=== PATIENT | female | born 1930 | race Caucasian/White ===

== ENCOUNTER 2016-09-15 13:57 | Inpatient (IN) | payer OTHER ==
[~2016-09-15] VITALS: Ht 167.6 cm; Wt 60.4 kg
[2016-09-15 14:51] LABS: BASOPHIL % 0.9 % (0-2); PLATELET COUNT 182 x10^3mcL (130-400)
[2016-09-15 15:01] LABS: CARBON DIOXIDE 24.7 mmol/L (21-32); CHLORIDE SERUM 106 mmol/L (98-107); CREATININE SERUM 1.4 mg/dL (0.6-1.0); GLUCOSE SERUM 90 mg/dL (74-106); POTASSIUM SERUM 4.3 mmol/L (3.5-5.1); SODIUM SERUM 144 mmol/L (136-145)
[2016-09-15 15:05] LABS: ALBUMIN 3.2 g/dL (3.4-5.0); ALKALINE PHOSPHATASE 72 U/L (46-116); ALT/SGPT 15 U/L (14-59); AST/SGOT 20 U/L (15-37); BILIRUBIN TOTAL 0.7 mg/dL (0.20-1.00); CHOLESTEROL 177 mg/dL (<200); TOTAL PROTEIN, SERUM 7.3 g/dL (6.4-8.2)
[2016-09-15] MEDS ORDERED: ZESTRIL20 MG PO (15:08)
[2016-09-15] MEDS ORDERED: PRO60 PO (15:09)
[2016-09-15] MEDS ORDERED: HALOPERIDOL2 MG PO (15:09)
[2016-09-15] MEDS ORDERED: COG1 PO (15:10)
[2016-09-15 16:43] LABS: UA SPECIFIC GRAVITY 1.025 (1.005-1.035); microscopic required? YES; urine erythrocyte NEGATIVE (NEGATIVE)
[2016-09-15 17:24] LABS: CHOLESTEROL/HDL RATIO 3.7; PHOSPHOROUS 2.7 mg/dL (2.5-4.9)
[2016-09-15 17:31] LABS: FREE T4 1.26 ng/dL (0.76-1.46); FREE THYROXINE INDEX 2.4 ug/dL (1.4-4.5); T4(THYROXINE) 6.9 ug/dL (4.7-13.3)
[2016-09-15 17:33] LABS: T3 TOTAL 0.69 ng/mL
[2016-09-15 18:00] VITALS: BP 121/61
[2016-09-15 20:55] VITALS: BP 136/70
[2016-09-16 05:38] VITALS: BP 120/56
[2016-09-16 05:40] LABS: BASOPHIL % 0.6 % (0-2); PLATELET COUNT 162 x10^3mcL (130-400)
[2016-09-16 05:45] LABS: CALCIUM 9.1 mg/dL (8.5-10.1); CHLORIDE SERUM 108 mmol/L (98-107); CREATININE SERUM 1.2 mg/dL (0.6-1.0); GLUCOSE SERUM 79 mg/dL (74-106); RED CELL DISTRIBUTION WIDTH 15.2 % (11.5-14.5); SODIUM SERUM 142 mmol/L (136-145)
[2016-09-16 06:00] LABS: ALBUMIN 2.7 g/dL (3.4-5.0)
[2016-09-16 09:18] VITALS: BP 108/54
[2016-09-16 13:10] VITALS: BP 116/70
[2016-09-16 17:03] VITALS: BP 122/60
[2016-09-16 21:36] VITALS: BP 140/64
[2016-09-17 05:39] VITALS: BP 103/39
[2016-09-17 11:00] VITALS: BP 125/59
[2016-09-17 13:40] VITALS: BP 104/51
[2016-09-17 18:15] VITALS: BP 121/68
[2016-09-17 21:38] VITALS: BP 126/81
[2016-09-18 06:06] VITALS: BP 121/74
[2016-09-18 06:35] LABS: CALCIUM 8.2 mg/dL (8.5-10.1); CARBON DIOXIDE 23.6 mmol/L (21-32); CHLORIDE SERUM 112 mmol/L (98-107); CREATININE SERUM 0.9 mg/dL (0.6-1.0); GLUCOSE SERUM 77 mg/dL (74-106); POTASSIUM SERUM 3.8 mmol/L (3.5-5.1); SODIUM SERUM 145 mmol/L (136-145)
[2016-09-18 08:55] VITALS: BP 139/70
[2016-09-18 17:40] VITALS: BP 128/68
[2016-09-18 18:48] VITALS: Ht 167.6 cm; Wt 60.4 kg
[2016-09-18 21:52] VITALS: BP 134/70
[2016-09-19 04:06] VITALS: BP 128/68
[2016-09-19 07:14] LABS: BASOPHIL % 0.3 % (0-2); PLATELET COUNT 161 x10^3mcL (130-400)
[2016-09-19 07:20] LABS: RED CELL DISTRIBUTION WIDTH 15.1 % (11.5-14.5)
[2016-09-19 07:25] LABS: CALCIUM 8.2 mg/dL (8.5-10.1); CARBON DIOXIDE 20.9 mmol/L (21-32); CHLORIDE SERUM 113 mmol/L (98-107); CREATININE SERUM 0.9 mg/dL (0.6-1.0); GLUCOSE SERUM 99 mg/dL (74-106); POTASSIUM SERUM 3.4 mmol/L (3.5-5.1); SODIUM SERUM 145 mmol/L (136-145)
[2016-09-19 09:30] VITALS: BP 137/72
[2016-09-19 17:13] VITALS: BP 118/71
[2016-09-20 01:30] VITALS: BP 128/68
[2016-09-20 08:16] LABS: CALCIUM 8.3 mg/dL (8.5-10.1); CARBON DIOXIDE 19.2 mmol/L (21-32); CHLORIDE SERUM 114 mmol/L (98-107); CREATININE SERUM 0.7 mg/dL (0.6-1.0); POTASSIUM SERUM 4.4 mmol/L (3.5-5.1); SODIUM SERUM 142 mmol/L (136-145)
[2016-09-20 08:25] LABS: GLUCOSE SERUM 94 mg/dL (74-106)
[2016-09-20 09:13] VITALS: BP 124/70
[2016-09-20 09:50] LABS: PLATELET COUNT 173 x10^3mcL (130-400)
[2016-09-20 09:55] LABS: BASOPHIL % 0 % (0-2); RED CELL DISTRIBUTION WIDTH 15.6 % (11.5-14.5)
[2016-09-20] MEDS ORDERED: COL100 PO (13:09)
[2016-09-20] MEDS ORDERED: LEXAPRO10 MG PO (13:09)
[2016-09-20 13:32] VITALS: BP 135/80
[2016-09-20 13:35] VITALS: BP 135/80
== END 2016-09-20 14:22 | DRG 56 ==
LOC: ED 13:57 → DU 16:18 → MU 16:18 → DU 17:18 → MU 09-16
PROVIDERS: Family Medicine; ADMIT Family Medicine
DX: G30.9 Alzheimer's disease, unspecified (principal); N17.0 Acute kidney failure with tubular necrosis; G93.41 Metabolic encephalopathy; E43 Unspecified severe protein-calorie malnutrition; F02.81 Dementia in other diseases classified elsewhere, unspecified severity, with behavioral disturbance; E86.0 Dehydration; I10 Essential (primary) hypertension; D64.9 Anemia, unspecified; E87.6 Hypokalemia; E87.8 Other disorders of electrolyte and fluid balance, not elsewhere classified; E83.51 Hypocalcemia; M62.50 Muscle wasting and atrophy, not elsewhere classified, unspecified site; Z66 Do not resuscitate; Z68.21 Body mass index [BMI] 21.0-21.9, adult
CPT/HCPCS: 80307; 82962; 83880; 84439; 97110-GP; 97116-GP; 97530-GP; G0480; J2060; J7030; Q0092